=== PATIENT | male | born 1985 | race Caucasian/White ===

== ENCOUNTER 2023-04-04 08:55 | Inpatient (IN) | payer OTHER ==
[~2023-04-04] VITALS: Ht 185.4 cm; Wt 106.6 kg
[2023-04-04] VITALS (24 sets, daily range): BP systolic 123–160; BP diastolic 9–105
[2023-04-04 10:46] LABS: BASOPHILS % (AUTO) 0.4 % (0.0-5.0); EOSINOPHILS % (AUTO) 0.3 % (0.0-8.0); HEMATOCRIT 44.2 % (42-54); LYMPHOCYTES % (AUTO) 22.6 % (21.0-51.0); MEAN CORPUSCULAR HEMOGLOBIN 31.9 pg (27.0-33.0); MEAN CORPUSCULAR HGB CONC 34.4 g/dL (32.0-36.0); MEAN CORPUSCULAR VOLUME 92.9 fL (79-99); MONOCYTES % (AUTO) 8.6 % (3.0-13.0); NEUTROPHILS % (AUTO) 67.6 % (40.0-77.0); PLATELET COUNT (AUTO) 263 K/uL (130-400); RED BLOOD CELL COUNT(AUTO) 4.76 MIL/uL (4.50-6.20); RED CELL DISTRIBUTION WIDTH 12.5 % (11.0-15.5); WHITE BLOOD COUNT (AUTO) 16.5 K/uL (4.8-10.8)
[2023-04-04 11:18] LABS: ALBUMIN 3.7 g/dL (3.5-5.0); POTASSIUM 3.9 mmol/L (3.5-5.1); TOTAL PROTEIN, SERUM 7.7 g/dL (6.0-8.3)
[2023-04-04] MEDS ORDERED: HYDROMORPHONE 0.5 MG SYG (0.5MG/0.5ML) IVP ONE (11:30)
[2023-04-04] MEDS ORDERED: LEVOFLOXACIN 500 MG/D5W 100 ML 100 ML IV SCH (11:30)
[2023-04-04] MEDS ORDERED: LIDOCAINE 1%-EPI 1:100,000 20 ML VIAL IJ ONE (13:28)
[2023-04-04] MEDS ORDERED: BUPIVACAINE/PF 0.25% 30ML VIAL IJ ONE (13:28)
[2023-04-04] MEDS ORDERED: ONDANSETRON 4MG INJ ONE (13:30)
[2023-04-04] MEDS ORDERED: LIDOCAINE PF 100MG/5ML (2%) SYRINGE 5ML ONE (13:30)
[2023-04-04] MEDS ORDERED: DEXAMETHASONE SOD PHOSPHATE 10MG/ML 1ML VIAL ONE (13:30)
[2023-04-04] MEDS ORDERED: PROPOFOL 10 MG/ML 20ML VIAL IV ONE (13:31)
[2023-04-04] MEDS ORDERED: MIDAZOLAM HCL 1 MG/ML 2ML VIAL ONE (13:31)
[2023-04-04] MEDS ORDERED: FENTANYL CITRATE PF 50 MCG/1 ML 2ML VIAL ONE (13:31)
[2023-04-04] MEDS ORDERED: ROCURONIUM 10MG/1ML SYR 10 MG/ML ML ONE ×2 (13:31→14:08)
[2023-04-04] MEDS ORDERED: MEPERIDINE-PF 25 MG/ML SYG ONE ×4 (13:54→15:25)
[2023-04-04] MEDS ORDERED: METRONIDAZOLE 500MG/100ML BAG 100 ML ONE (13:57)
[2023-04-04] MEDS ORDERED: 0.9%NACL 50ML IV SCH (14:00)
[2023-04-04] MEDS ORDERED: ZOSYN 3.375GM +NS 50ML IVPB SCH (14:00)
[2023-04-04] MEDS ORDERED: NEOSTIGMINE 5MG/5ML SYR IV ONE (14:15)
[2023-04-04] MEDS ORDERED: GLYCOPYRROLATE 1 MG/5 ML SYRINGE ONE (14:15)
[2023-04-04] MEDS ORDERED: ACETAMINOPHEN 325 MG TAB PO PRN (17:00)
[2023-04-04] MEDS ORDERED: OXYCODONE/ACETAMIN 5/325MG TAB PO PRN (17:00)
[2023-04-04] MEDS: HYDROMORPHONE 1 MG INJ IVP PRN ×2 (17:21→20:05)
[2023-04-04] MEDS: KETOROLAC 30MG VIAL (30MG/ML) IM PRN (17:26)
[2023-04-04] MEDS: 0.9%NACL 1000ML 1,000 ML IV SCH (17:26)
[2023-04-04] MEDS: METRONIDAZOLE 500MG/100ML BAG 100 ML IVPB SCH (21:50)
[2023-04-05 00:38] VITALS: BP 140/90
[2023-04-05] MEDS: KETOROLAC 30MG VIAL (30MG/ML) IM PRN ×2 (03:23→08:59)
[2023-04-05] MEDS: 0.9%NACL 1000ML 1,000 ML IV SCH (03:24)
[2023-04-05 04:22] VITALS: BP 142/102
[2023-04-05 04:41] LABS: BASOPHILS % (AUTO) 0.1 % (0.0-5.0); HEMATOCRIT 43.5 % (42-54); LYMPHOCYTES % (AUTO) 9.3 % (21.0-51.0); MEAN CORPUSCULAR HEMOGLOBIN 31.3 pg (27.0-33.0); MEAN CORPUSCULAR HGB CONC 33.6 g/dL (32.0-36.0); MEAN CORPUSCULAR VOLUME 93.1 fL (79-99); PLATELET COUNT (AUTO) 283 K/uL (130-400); RED BLOOD CELL COUNT(AUTO) 4.67 MIL/uL (4.50-6.20); RED CELL DISTRIBUTION WIDTH 12.6 % (11.0-15.5); WHITE BLOOD COUNT (AUTO) 15.9 K/uL (4.8-10.8)
[2023-04-05 04:56] LABS: CREATININE 1.1 mg/dL (0.5-1.5); POTASSIUM 4.3 mmol/L (3.5-5.1)
[2023-04-05] MEDS: METRONIDAZOLE 500MG/100ML BAG 100 ML IVPB SCH (06:10)
[2023-04-05 08:00] VITALS: BP 135/81
[2023-04-05] MEDS ORDERED: ENOXAPARIN SODIUM 40 MG/0.4 ML SYRINGE SQ SCH (09:00)
== END 2023-04-05 09:15 | disposition home or self-care (01) | DRG 343 ==
LOC: 4BH 09:32
PROVIDERS: ADMIT Hospitalist; ATTEND Hospitalist
PROC: 0DTJ4ZZ Resection of Appendix, Percutaneous Endoscopic Approach (ICD-10-PCS; principal; 2023-04-04 14:02)
DX: K35.80 Unspecified acute appendicitis (principal); F10.20 Alcohol dependence, uncomplicated; Z20.822 Contact with and (suspected) exposure to COVID-19; Z82.49 Family history of ischemic heart disease and other diseases of the circulatory system; Z83.3 Family history of diabetes mellitus; Z88.0 Allergy status to penicillin
CPT/HCPCS: 36415; 80048; 80053; 85025; 86850; 86900; 86901; 87040; 87635; G0378; J1100; J1170; J1650; J1885; J1956; J2001; J2175; J2250; J2405; J2704; J2710; J3010; J3490